=== PATIENT | female | born 1950 | race Caucasian/White ===

== ENCOUNTER 2017-10-11 15:08 | Observation (INO) | payer OTHER, MEDICARE ==
[~2017-10-11] VITALS: Ht 162.6 cm; Wt 60.0 kg
[~2017-10-11 15:08] MED LIST: MINO65TA PO; SERT50TA PO; ZOLP-413 PO
[2017-10-11] MEDS ORDERED: SODIUM CHLORIDE FLUSH 10ML SYR IVF ONE (15:30)
[2017-10-11 15:41] LABS: BASOPHILS # (AUTO) 0.03 x10^3/uL (0-0.1); BASOPHILS % (AUTO) 0 % (0-1); EOSINOPHILS # (AUTO) 0.07 x10^3/uL (0-0.4); EOSINOPHILS % (AUTO) 1 % (1-7); LYMPHOCYTES # (AUTO) 4.45 x10^3/uL (1-3.4); LYMPHOCYTES % (AUTO) 50 % (22-44); MD NO; MEAN CORPUSCULAR HEMOGLOBIN 29.7 pg (27.0-34.8); MEAN CORPUSCULAR HGB CONC 33.8 g/dL (32.4-35.8); MEAN PLATELET VOLUME 6.5 fL (7.4-10.4); MONOCYTES # (AUTO) 0.71 x10^3/uL (0.2-0.8); MONOCYTES % (AUTO) 8 % (2-9); NEUTROPHILS # (AUTO) 3.63 x10^3/uL (1.8-6.8); NEUTROPHILS % (AUTO) 41 % (42-75); PLATELET COUNT 290 x10^3/uL (130-400); RED BLOOD COUNT 5.16 x10^6/uL (3.82-5.3); RED CELL DISTRIBUTION WIDTH 13.3 % (9.6-15.2)
[2017-10-11 15:55] LABS: ALBUMIN 4.2 g/dL (3.4-5.0); ANION GAP 12 mmol/L (5-15); CALCIUM 9.8 mg/dL (8.5-10.1); CHLORIDE 102 mmol/L (98-107)
[2017-10-11 16:00] LABS: CREATININE 0.84 mg/dL (0.55-1.02); TROPONIN I < 0.015 ng/mL (0.000-0.045)
[2017-10-11 16:38] LABS: PROTHROMBIN TIME 10.4 Seconds (9.6-11.5)
[2017-10-11] MEDS ORDERED: ACETAMINOPHEN 325 MG TABLET PO PRN (17:00)
[2017-10-11] MEDS ORDERED: ONDANSETRON 2MG/ML, 2ML IVPush PRN (17:00)
[2017-10-11] MEDS ORDERED: SODIUM CHLORIDE FLUSH 10ML SYR IVF PRN (17:00)
[2017-10-11 18:18] LABS: HEMOGLOBIN A1C 5.7 % (4.2-6.3)
[2017-10-11 18:19] VITALS: BP 137/82
[2017-10-11] MEDS: HEPARIN 5,000 UNITS/ML, 1ML SQ SCH (18:30)
[2017-10-11] MEDS: SODIUM CHLORIDE 0.9% 1,000 ML IV SCH (18:30)
[2017-10-11 20:12] VITALS: BP 131/69
[2017-10-11] MEDS ORDERED: ZOLPIDEM 5MG TABLET PO SCH (21:00)
[2017-10-11] MEDS ORDERED: ATORVASTATIN 40 MG TABLET PO SCH (21:00)
[2017-10-12 02:13] VITALS: BP 113/68
[2017-10-12] MEDS: HEPARIN 5,000 UNITS/ML, 1ML SQ SCH ×2 (05:38→17:00)
[2017-10-12 05:48] LABS: CHOL/HDL RATIO 3.2
[2017-10-12] MEDS ORDERED: ASPIRIN 325 MG TABLET PO SCH (06:00)
[2017-10-12 07:10] VITALS: BP 120/71
[2017-10-12] MEDS ORDERED: SERTRALINE 50MG TABLET PO SCH (09:00)
[2017-10-12] MEDS ORDERED: MINOCYCLINE HCL PO SCH (09:00)
[2017-10-12] MEDS: SODIUM CHLORIDE 0.9% 1,000 ML IV SCH (09:35)
[2017-10-12] MEDS ORDERED: PNEUMOCOCCAL 23 VACCINE IM-VACC ONE (12:30)
[2017-10-12] MEDS ORDERED: ASPI-621 PO (12:33)
[2017-10-12] MEDS ORDERED: ATOR40TA78 PO (12:33)
[2017-10-12 14:35] VITALS: BP 129/78
== END 2017-10-12 18:28 | disposition home or self-care (01) ==
LOC: ED 17:00 → INTOOBSV 17:01 → EDIP 17:01 → 4EST 17:53
PROVIDERS: ADMIT Internal Medicine; ATTEND Internal Medicine
DX: G45.4 Transient global amnesia (principal); E03.9 Hypothyroidism, unspecified; E78.5 Hyperlipidemia, unspecified; I10 Essential (primary) hypertension; J32.0 Chronic maxillary sinusitis; Z83.3 Family history of diabetes mellitus
CPT/HCPCS: 0399T; 36415; 70450; 70551; 80048; 80061; 82040; 83036; 84484; 85025; 85610; 85730; 90471; 90732; 93005; 93306; 96360; 96361; 96372; 99285; G0378; J1644; J7030